=== PATIENT | female | born 1935 | race African-American/Black ===

== ENCOUNTER 2019-05-11 13:34 | Emergency (ER) | payer MEDICARE ==
--- NOTE | 2019-05-11 15:05 | RAD ---
XR Shoulder Rt 3 View STANDARD History: Fall. Pain Comparison: None. Findings: Visualized right-sided ribs are intact. No acute displaced fracture or malalignment. Impression: No acute osseous abnormality.
--- NOTE | 2019-05-11 15:06 | RAD ---
XR Knee Rt 4 View STANDARD History: Fall Comparison: None. Findings: High-grade medial compartment degenerative change. No significant joint effusion. Large med ial compartment osteophyte formation with subcortical cysts and sclerosis. Impression: High-grade medial compartment degenerative change. No acute fracture or malalignment.
== END 2019-05-11 15:34 | disposition home or self-care (01) ==
LOC: ERS 13:34
DX: M25.561 Pain in right knee (principal); M25.511 Pain in right shoulder; I10 Essential (primary) hypertension; F03.90 Unspecified dementia, unspecified severity, without behavioral disturbance, psychotic disturbance, mood disturbance, and anxiety; Z86.73 Personal history of transient ischemic attack (TIA), and cerebral infarction without residual deficits; W06.XXXA Fall from bed, initial encounter

== ENCOUNTER 2021-03-23 11:01 | Emergency (ER) | payer MEDICARE ==
[2021-03-23] MEDS ORDERED: Acetaminophen 500 MG TAB ONE (12:38)
== END 2021-03-23 16:33 | disposition home or self-care (01) ==
LOC: ERS 11:01
DX: S80.12XA Contusion of left lower leg, initial encounter (principal); W18.39XA Other fall on same level, initial encounter; I10 Essential (primary) hypertension; Z86.73 Personal history of transient ischemic attack (TIA), and cerebral infarction without residual deficits; Z79.899 Other long term (current) drug therapy
CPT/HCPCS: 70450

== ENCOUNTER 2023-01-11 18:19 | Emergency (ER) | payer MEDICARE ==
[2023-01-11 18:33] LABS: #Eosinphils 0.1 thou/uL (0.0-0.7); #Monocytes 0.5 thou/uL (0.11-0.59); #Neutrophils 5.1 thou/uL (1.40-6.50); %Basophils 0.4 % (0.0-1.0); %Eosinophils 1.1 % (0.0-10.0); %Lymphocytes 23.3 % (21.0-51.0); %Monocytes 6.3 % (0.0-10.0); %Neutrophils 68.5 % (42.0-75.0); Hematocrit 39.8 % (36.0-47.0); Mean Corpuscular HGB CONC 32.7 g/dL (32.0-36.0); Mean Corpuscular Hemoglobin 29.3 pg (27.0-31.0); Mean Corpuscular Volume 89.6 fl (78.0-98.0); Mean Platelet Volume 9.1 fL (7.4-10.4); Platelet Count 303 10x3/uL (130-400); RBC Distribution Width 13.4 % (11.5-14.5); Red Blood Cell (RBC) Count 4.44 mill/uL (4.20-5.40); White Blood Cell (WBC) Count 7.5 10x3/uL (4.8-10.8)
[2023-01-11 19:01] LABS: ALT (SGPT) 7 U/L (8-55); AST (SGOT) 10 U/L (5-34); Alkaline Phosphatase 71 U/L (40-110); Anion Gap 16 mmol/L (10-20); BUN (Urea Nitrogen) 11 mg/dL (9.8-20.1); Bilirubin, Total 0.6 mg/dL (0.2-1.2); Calc. Creatinine Clearance 0 mL/min (70-130); Calcium 9.6 mg/dL (7.8-10.44); Carbon Dioxide 25 mmol/L (23-31); Chloride 103 mmol/L (98-107); Estimated GFR 65; Globulin 3.2 g/dL (2.4-3.5); Glucose 114 mg/dL (83-110); Potassium 2.7 mmol/L (3.5-5.1); Protein, Total 7.2 g/dL (5.8-8.1); Sodium 141 mmol/L (136-145)
[2023-01-11] MEDS ORDERED: Potassium Chloride 20 MEQ TAB ONE (22:08)
== END 2023-01-11 22:22 | disposition home or self-care (01) ==
LOC: ERS 18:19
DX: S00.03XA Contusion of scalp, initial encounter (principal); T14.8XXA Other injury of unspecified body region, initial encounter; I10 Essential (primary) hypertension; I25.10 Atherosclerotic heart disease of native coronary artery without angina pectoris; E78.00 Pure hypercholesterolemia, unspecified; Z79.899 Other long term (current) drug therapy; Z79.82 Long term (current) use of aspirin; W19.XXXA Unspecified fall, initial encounter
CPT/HCPCS: 70450; 72125; 80053; 85025